=== PATIENT | female | born 1965 | race Caucasian/White ===

== ENCOUNTER 2024-05-15 04:20 | Outpatient (CLI) | payer OTHER, SELFPAY | END 2024-05-15 04:21 | disposition home or self-care (01) | LOC: AMB 05-19 18:39 | PROVIDERS: PCP Family Medicine; Visit Provider Family Medicine | DX: R41.82 Altered mental status, unspecified (principal); R29.810 Facial weakness | CPT/HCPCS: A0425; A0427 ==